=== PATIENT | female | born 1970 | race Hispanic/Latino ===

== ENCOUNTER 2019-08-26 14:00 | Inpatient (IN) | payer BC ==
[~2019-08-26] VITALS: Ht 152.4 cm; Wt 59.1 kg
[2019-10-10 11:59] LABS: POTASSIUM 3.7 mmol/L (3.5-5.1)
[2019-10-10 12:05] LABS: EOSINOPHILS % (AUTO) 2.1 % (0.0-8.0); HEMATOCRIT 44.4 % (36-48); LYMPHOCYTES % (AUTO) 50.2 % (21.0-51.0); MEAN CORPUSCULAR HEMOGLOBIN 29.3 pg (27.0-33.0); MEAN CORPUSCULAR HGB CONC 32.7 g/dL (32.0-36.0); MEAN CORPUSCULAR VOLUME 89.7 fL (79-99); MONOCYTES % (AUTO) 6.2 % (3.0-13.0); NEUTROPHILS % (AUTO) 40.3 % (40.0-77.0); PLATELET COUNT (AUTO) 359 K/uL (130-400); RED BLOOD CELL COUNT(AUTO) 4.95 MIL/uL (4.00-5.50); RED CELL DISTRIBUTION WIDTH 13.5 % (11.0-15.5); WHITE BLOOD COUNT (AUTO) 10.1 K/uL (4.8-10.8)
[2019-10-10 12:52] VITALS: BP 113/66
[2019-10-10] MEDS ORDERED: TOPI25TA48 PO (13:32)
[2019-10-10] MEDS ORDERED: PREG75 PO (13:32)
[2019-10-10] MEDS ORDERED: OMEG-116 PO (13:32)
[2019-10-10] MEDS ORDERED: VENL75 PO (13:32)
--- NOTE | 2019-10-10 13:39 | NUR ---
SODIUM INFORMED MICHAEL, OF ABNORMAL SODIUM. PER DR PAGAN, REPEAT LYTES IN AM OF PROCEDURE.
--- NOTE | 2019-10-10 13:45 | NUR ---
EKG INFORMED DR. LOPEZ OF ABNORMAL EKG. NO ORDERS RECEIVED. PROCEED WITH PLANNED PROCEDURE.
[2019-10-11] VITALS (21 sets, daily range): BP systolic 100–139; BP diastolic 53–85
[2019-10-11] MEDS ORDERED: CLINDAMYCIN 900 MG/D5% WATER 50 ML IV SCH (05:00)
[2019-10-11] MEDS ORDERED: LACTATED RINGERS 1000ML 1,000 ML IV ONE (06:17)
[2019-10-11] MEDS ORDERED: CEFAZOLIN SODIUM 1 GM VIAL ONE (06:39)
[2019-10-11] MEDS ORDERED: THROMBIN-JMI 20000 UNIT KIT TP ONE (06:39)
[2019-10-11] MEDS ORDERED: BUPIVACAINE/EPI/PF 0.25% 30ML VIAL IJ ONE (06:39)
[2019-10-11 06:54] LABS: POTASSIUM 3.8 mmol/L (3.5-5.1)
[2019-10-11] MEDS ORDERED: LIDOCAINE PF 2% 5ML ABBOJECT ONE (07:01)
[2019-10-11] MEDS ORDERED: GLYCOPYRROLATE 1 MG/5 ML SYRINGE ONE (07:02)
[2019-10-11] MEDS ORDERED: MIDAZOLAM HCL 1 MG/ML 2ML VIAL ONE (07:02)
[2019-10-11] MEDS ORDERED: ONDANSETRON HCL 4 MG/2 ML VIAL ONE (07:02)
[2019-10-11] MEDS ORDERED: PROPOFOL 10 MG/ML 20ML VIAL IV ONE (07:02)
[2019-10-11] MEDS ORDERED: ROCURONIUM 10MG/1ML SYR 10 MG/ML ML ONE ×2 (07:02→08:05)
[2019-10-11] MEDS ORDERED: DEXAMETHASONE SOD PHOSPHATE 10MG/ML 1ML VIAL ONE (07:02)
[2019-10-11] MEDS ORDERED: NEOSTIGMINE 5MG/5ML SYR IV ONE (07:02)
[2019-10-11] MEDS ORDERED: FENTANYL CITRATE PF 50 MCG/1 ML 2ML VIAL ONE ×3 (07:03→09:06)
[2019-10-11] MEDS ORDERED: DEXAMETHASONE SOD PHOSPHATE 4 MG/ML 1ML VIAL ONE (07:03)
[2019-10-11] MEDS ORDERED: ESMOLOL HCL 10 MG/ML 10 ML VIAL ONE (07:52)
[2019-10-11] MEDS ORDERED: ARTIFICIAL TEARS 3.5 GM OINTMENT ONE (07:56)
[2019-10-11] MEDS ORDERED: PHENYLEPHRINE HCL 10 MG/ML 1ML VIAL IV ONE (07:56)
[2019-10-11] MEDS ORDERED: OXYMETAZOLINE HCL SPRAY 15 ML BOTTLE ONE (09:55)
[2019-10-11] MEDS ORDERED: PROMETHAZINE HCL 25 MG/ML 1ML AMPULE IM PRN (10:30)
[2019-10-11] MEDS: DEXAMETHASONE SOD PHOSPHATE 4 MG/ML 1ML VIAL IVP SCH ×3 (10:30→22:45)
[2019-10-11] MEDS: CLINDAMYCIN 900 MG/D5% WATER 50 ML IV SCH ×4 (10:30→23:42)
[2019-10-11] MEDS ORDERED: SODIUM CHLORIDE 0.9% 10 ML VIAL IVP PRN (10:30)
[2019-10-11] MEDS: LACTATED RINGERS 1000ML 1,000 ML IV SCH ×2 (12:31→22:46)
[2019-10-11] MEDS: MORPHINE SULFATE 2 MG/ML 1ML SYG IVP PRN (12:31)
--- NOTE | 2019-10-11 14:53 | NUR ---
NARDA PLAN PATIENT DOWN FOR PROCEDURE. CM WILL CONTINUE TO FOLLOW. Addendum: 10/11/19 at 1505 by FRANK MEDEL RN CM Amended: Links added.
[2019-10-11] MEDS: HYDROCODONE/ACETAMINOPHEN 5/325 MG TAB PO PRN ×3 (16:54→23:40)
--- NOTE | 2019-10-11 16:56 | NUR ---
DC PLAN VISITED WITH PATIENT. PATIENT LIVES WITH SPOUSE. INDEPENDENT ABLE TO PERFORM ADL'S. PATIENT HAS NO SERVICES OR DME'S. FEELS SAFE TO RETURN HOME. Addendum: 10/11/19 at 1657 by FRANK MEDEL RN CM Amended: Links added.
[2019-10-11] MEDS ORDERED: CALCIUM CARBON 500MG CHEW TAB ONE (20:08)
[2019-10-11] MEDS ORDERED: BENZOCAINE/MENTH/CETYLPYRD CL 1 EACH LOZENGE MM ONE (20:12)
[2019-10-11] MEDS ORDERED: BENZOCAINE/MENTH/CETYLPYRD CL 1 EACH LOZENGE MM PRN (20:45)
[2019-10-11] MEDS ORDERED: CALCIUM CARBON 500MG CHEW TAB PO PRN (20:45)
[2019-10-11] MEDS ORDERED: VENLAFAXINE HCL 75 MG TAB PO SCH (21:00)
[2019-10-11] MEDS ORDERED: PREGABALIN 75 MG CAPSULE PO SCH (21:00)
[2019-10-11] MEDS ORDERED: TOPIRAMATE 25 MG TABLET PO SCH (21:00)
[2019-10-11] MEDS ORDERED: FISH OIL 1000 MG/CAP PO SCH (21:00)
[2019-10-12 00:08] VITALS: BP 119/73
[2019-10-12 04:08] VITALS: BP 116/71
[2019-10-12] MEDS: HYDROCODONE/ACETAMINOPHEN 5/325 MG TAB PO PRN ×2 (04:20→09:26)
[2019-10-12] MEDS: DEXAMETHASONE SOD PHOSPHATE 4 MG/ML 1ML VIAL IVP SCH ×2 (04:28→10:48)
[2019-10-12] MEDS: MORPHINE SULFATE 2 MG/ML 1ML SYG IVP PRN (06:26)
[2019-10-12 08:16] VITALS: BP 104/62
== END 2019-10-12 11:50 | disposition home or self-care (01) | DRG 472 ==
LOC: EDSTATUS 10-10 11:00 → 3DH 10-11 06:03
PROVIDERS: ADMIT Neurological Surgery; ATTEND Neurological Surgery
PROC: 0RG20A0 Fusion of 2 or more Cervical Vertebral Joints with Interbody Fusion Device, Anterior Approach, Anterior Column, Open Approach (ICD-10-PCS; principal; 2019-10-11 07:30)
PROC: 0RB30ZZ Excision of Cervical Vertebral Disc, Open Approach (ICD-10-PCS; 2019-10-11 07:30)
PROC: 4A11X4G Monitoring of Peripheral Nervous Electrical Activity, Intraoperative, External Approach (ICD-10-PCS; 2019-10-11 07:30)
DX: M47.22 Other spondylosis with radiculopathy, cervical region (principal); H46.9 Unspecified optic neuritis; M48.02 Spinal stenosis, cervical region; G35 Multiple sclerosis; M25.78 Osteophyte, vertebrae; Z90.710 Acquired absence of both cervix and uterus; Z90.49 Acquired absence of other specified parts of digestive tract; Z88.8 Allergy status to other drugs, medicaments and biological substances
CPT/HCPCS: 36415; 71045; 72040; 80051; 85025; 93005; A4344; G0378; J0690; J1100; J2001; J2250; J2370; J2405; J2704; J2710; J3010; J3490; J7030; J7120

== ENCOUNTER → 2019-11-07 | Outpatient (CLI) | payer BC ==
[~2019-11-07] MED LIST: OMEG-116 PO; PREG75 PO; TOPI25TA48 PO; VENL75 PO
== END | disposition home or self-care (01) ==
LOC: OIH 09:43
PROVIDERS: ATTEND Neurological Surgery
DX: M43.22 Fusion of spine, cervical region (principal)
CPT/HCPCS: 72040

== ENCOUNTER → 2020-05-21 | Outpatient (CLI) | payer BC | END | disposition home or self-care (01) | LOC: OIH 08:13 | PROVIDERS: ATTEND Neurological Surgery | DX: M43.22 Fusion of spine, cervical region (principal) | CPT/HCPCS: 72040 ==

== ENCOUNTER 2021-11-12 05:49 | Day surgery (SDC) | payer BC ==
[2021-11-11 11:35] VITALS: BP 105/62
[~2021-11-12] VITALS: Ht 149.9 cm; Wt 61.1 kg
[2021-11-12] VITALS (11 sets, daily range): BP systolic 102–127; BP diastolic 52–75
[~2021-11-12 05:49] MED LIST changes: +CALC-1125 PO; +CHOL200074 PO; +FOLATE PO; +LEVO5TAB29 PO; +PREG50CA63 PO; -PREG75 PO
[2021-11-12] MEDS ORDERED: CLINDAMYCIN IVPB 900MG/50ML 50 ML IV ONE (06:06)
[2021-11-12] MEDS ORDERED: LACTATED RINGERS 1000ML 1,000 ML IV ONE (06:06)
[2021-11-12] MEDS ORDERED: PROPOFOL 10 MG/ML 20ML VIAL IV ONE ×2 (07:03→07:40)
[2021-11-12] MEDS ORDERED: MIDAZOLAM HCL 1 MG/ML 2ML VIAL ONE ×2 (07:04→07:12)
[2021-11-12] MEDS ORDERED: ROCURONIUM 10MG/1ML SYR 10 MG/ML ML ONE (07:04)
[2021-11-12] MEDS ORDERED: FENTANYL CITRATE PF 50 MCG/1 ML 2ML VIAL ONE ×2 (07:04→08:00)
[2021-11-12] MEDS ORDERED: ONDANSETRON 4MG INJ ONE (07:10)
[2021-11-12] MEDS ORDERED: LIDOCAINE HCL MDV 0.5% 50ML VIAL IJ ONE (07:14)
[2021-11-12] MEDS ORDERED: LABETALOL 20MG VIAL IV ONE (07:27)
[2021-11-12] MEDS ORDERED: CLINDAMYCIN IVPB 900MG/50ML 50 ML IV SCH (08:00)
== END 2021-11-12 09:40 | disposition home or self-care (01) ==
LOC: DAH 05:49
PROVIDERS: ATTEND Neurological Surgery
DX: G56.03 Carpal tunnel syndrome, bilateral upper limbs (principal); F41.9 Anxiety disorder, unspecified; Z79.01 Long term (current) use of anticoagulants; Z79.899 Other long term (current) drug therapy; Z98.1 Arthrodesis status; Z98.890 Other specified postprocedural states
CPT/HCPCS: 64721; 87635; A4215 ×2; A4216; A4221; A4222; A4223 ×2; A4663; A6260; C9803; J2250; J2405; J2704 ×2; J3010 ×2; J3490 ×4; J7120